=== PATIENT | male | born 1945 | race African-American/Black ===

== ENCOUNTER 2022-05-04 03:02 | Emergency (ER) | payer SELFPAY ==
[2022-05-04] MEDS ORDERED: EPINEPHrine 1:10,000 (P-F SYR) 1 MG/10 ML DISP.SYRIN ONE (03:17)
[2022-05-04 03:35] VITALS: BP 00/00; PULSE 0; RESP 0; BMI 27.1
== END 2022-05-04 05:37 | disposition expired ==
LOC: JER 03:02
DX: I46.9 Cardiac arrest, cause unspecified (principal)
CPT/HCPCS: 82962; 99283-25